=== PATIENT | male | born 1980 | race Caucasian/White ===

== ENCOUNTER → 2018-10-14 08:34 | Outpatient (CLI) | payer OTHER, SELFPAY ==
--- NOTE | 2018-10-14 | DI.MRI.S_ITS ---
PROCEDURE: MRFOOT LT WO CON INDICATIONS: LEFT FOOT PAIN TECHNIQUE: Noncontrast sagittal T1 spin echo and T2 fast spin echo with fat saturation, long-axis T1 spin echo and T2 fast spin echo with fat saturation, short-axis T1 spin echo and T2 fast spin echo with fat saturation through the forefoot. COMPARISON: None. FINDINGS: Image quality: Excellent. Bones and joints: No bone marrow contusions or metatarsal stress fractures. There is low signal within the medial hallux sesamoid suggestive of chronic medial hallux sesamoiditis. No associated acute marrow edema. Mild first metatarsophalangeal joint degeneration. No intraosseous lesions. 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 The distal insertions of the peroneus brevis and longus tendons appear intact. The principal Lisfranc ligament appears intact. No soft tissue ganglion cysts or bursal fluid collections. Sagittal images demonstrate no evidence for plantar plate tears. IMPRESSION: Mild first MTP joint degeneration. 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 Recommend close clinical correlation. Chronic medial hallux sesamoiditis Dictated by: Codey Gupta M.D. on 10/14/2018 at 10:22 Approved by: Codey Gupta M.D. on 10/14/2018 at 11:17
== END ==
PROVIDERS: PCP Student in an Organized Health Care Education/Training Program; Visit Provider Student in an Organized Health Care Education/Training Program
DX: M79.672 Pain in left foot (principal); M19.072 Primary osteoarthritis, left ankle and foot; M25.872 Other specified joint disorders, left ankle and foot
CPT/HCPCS: 73718

== ENCOUNTER → 2019-01-29 06:33 | Outpatient (CLI) | payer OTHER, SELFPAY ==
--- NOTE | 2019-01-29 | DI.MRI.S_ITS ---
PROCEDURE: MRFOOT LT WO CON INDICATIONS: LEFT FOOT PAIN TECHNIQUE: Noncontrast sagittal T1 spin echo and T2 fast spin echo with fat saturation, long-axis T1 spin echo and T2 fast spin echo with fat saturation, short-axis T1 spin echo and T2 fast spin echo with fat saturation through the forefoot. COMPARISON: [facility], , MR FOOT LT WO CON, 10/14/2018, 9:23. FINDINGS: Image quality: Diagnostic. Bones and joints: There is no acute fracture, dislocation, or suspicious osseous lesion identified involving the osseous structures of the midfoot or forefoot. There are early degenerative changes of the interphalangeal joint of the great toe. The lateral sesamoid of the great toe is within normal limits. The medial sesamoid is either congenitally absent or is very small in size and likely sclerotic, unchanged since the prior study, suggesting chronic sesamoiditis. Incidental note is made of a joint effusion involving the 5th metatarsophalangeal joint with associated mild degenerative change. Soft tissues: No soft tissue mass or fluid collection is evident involving the midfoot or forefoot. There continues to be minimal fatty atrophy and associated muscle edema involving the abductor digiti minimi muscle of the forefoot, which has not significantly changed. No additional areas of muscle edema or atrophy are evident. A small amount of fluid is identified within the intermetatarsal bursae between the 3rd and 4th metatarsal heads. The Lisfranc ligament is intact. The flexor and extensor tendons of the forefoot are within normal limits. IMPRESSION: 1. Unchanged muscle edema and atrophy of the abductor digiti minimize muscle remains suspicious for a Cardozo's neuropathy. Please correlate clinically. 2. Mild degenerative changes of the great toe are unchanged. 3. Abnormal appearance of the medial sesamoid is unchanged and may be related to chronic sesamoiditis of the great toe. 4. Mild degenerative changes of the 5th metatarsophalangeal joint with an associated joint effusion. A small tear of the joint capsule may be present. 5. Fluid within the intermetatarsal bursae between the 3rd and 4th metatarsal heads may represent bursitis. Dictated by: Jamar Cabrera M.D. on 01/29/2019 at 8:25 Approved by: Jamar Cabrera M.D. on 01/29/2019 at 8:50
== END ==
PROVIDERS: PCP Student in an Organized Health Care Education/Training Program; Visit Provider Podiatrist
DX: M79.672 Pain in left foot (principal); M19.072 Primary osteoarthritis, left ankle and foot; M25.475 Effusion, left foot; S99.922A Unspecified injury of left foot, initial encounter
CPT/HCPCS: 73718

== ENCOUNTER → 2020-07-05 06:28 | Outpatient (CLI) | payer OTHER, SELFPAY ==
--- NOTE | 2020-07-05 | DI.MRI.S_ITS ---
PROCEDURE: MR KNEE LT WO CON INDICATIONS: Pain in unspecified knee TECHNIQUE: Noncontrast sagittal PD fast spin echo and T2 fast spin echo with fat saturation, sagittal 3-D FLASH with fat saturation; coronal T1 spin echo and PD fast spin echo with fat saturation, and axial PD fast spin echo with fat saturation through the knee. COMPARISON: None. FINDINGS: Image quality: Excellent. Menisci: The medial and lateral menisci demonstrate normal morphology and internal signal. The meniscal root ligaments appear intact. Cruciate ligaments: The anterior and posterior cruciate ligaments appear intact. Medial structures: The medial collateral ligament appears intact. Visualized portions of the pes anserinus tendons appear normal. No abnormal bursal fluid. Lateral structures: The lateral collateral ligament, long and short heads of the biceps femoris tendon appear intact. The popliteus tendon appears normal. Iliotibial band appears normal. Anterior structures: The quadriceps and patellar tendons appear intact. Patellar alignment is normal. No femoral trochlear dysplasia or ventral trochlear prominence. No edema in the infrapatellar fat pad. Bones and cartilage: No bone marrow contusions or fractures. The cartilage of the medial and lateral femorotibial compartments, as well as the patellofemoral compartment, appears normal in thickness. Joint space: There is a small knee joint effusion and a trace Perry's cyst. Normal appearing synovial plicae are incidentally noted. IMPRESSION: 1. No internal derangement. 2. Small knee joint effusion and trace Perry's cyst. Dictated by: Hi Hunt M.D. on 07/05/2020 at 10:05 Approved by: Hi Hunt M.D. on 07/05/2020 at 10:07
== END ==
PROVIDERS: PCP Internal Medicine; Referring Provider Internal Medicine; Visit Provider Internal Medicine
DX: M25.562 Pain in left knee (principal); M25.462 Effusion, left knee
CPT/HCPCS: 73721